=== PATIENT | male | born 1995 | race Caucasian/White ===

== ENCOUNTER 2016-10-21 21:38 | Emergency (ER) | payer OTHER ==
--- NOTE | ~2016-10-21 | CT2 ---
[facility] A Service of [facility] RADIOLOGY TEXT RESULTS PATIENT: MELONIE ASTORGA LOCATION: [facility] : [birth year] UNIT #: [id number] AGE: [address]: Nick Arguelles MD SEX: M ORDER DR: [id number] [facility] [address] [place], [place] [address] [id number] E MR#: [id number] Acc #: [id number] NAME: MELONIE ASTORGA. : 1995 SEX: M STUDY DATE/TIME: 10/22/2016 1:34 UNIT: RUBI ROOM: STUDY DESCRIPTION: CT Abd and Pelv W Cont Attending Physician: Nick Arguelles M.D. Ordering Physician: Nick Arguelles M.D. Primary Care Physician: [facility] MEDICAL IMAGING REPORT This report is preliminary unless electronic signature is present EXAM CT scan of the abdomen and pelvis with contrast INDICTIONS Abdomen pain across the lower abdomen since yesterday. COMPARISON STUDY: 04/18/14 The patient was given 100 mL of Isovue 370 and axial 5 mm images were obtained. Sagittal and coronal reconstructions were generated. FINDINGS There is a calcified granuloma in the right lower lobe. There is minimal basilar atelectasis. The liver, gallbladder, spleen, pancreas, adrenal glands and kidneys are normal in appearance. The aorta is normal in size and there is no adenopathy. There is no evidence of appendicitis. The bowel appear normal. The bladder and prostate gland are normal. The bones are unremarkable. IMPRESSION 1. There is no CT evidence of appendicitis. 2. Otherwise the study is normal. 1. Dictated by... Quinn Brooks M.D. THIS IS AN ELECTRONICALLY VERIFIED REPORT Quinn Brooks M.D. at 10/22/2016 1:42 PM FEL/cmm [facility] A Service of [facility] RADIOLOGY TEXT RESULTS PATIENT: MELONIE ASTORGA LOCATION: [facility] : [birth year] UNIT #: [id number] AGE: [address]: Nick Arguelles MD SEX: M ORDER DR: TD: 10/22/2016 13:26 JOB #: [id number] MEDICAL IMAGING REPORT Page 1 of 1 COPY
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
[~2016-10-21 21:38] MED LIST: HYDROCODON-ACE1 EAC9 PO; IBUPROFEN800 MG PO; NO MEDICATIONS; PHENERGAN25 MG PO
[2016-10-22 01:14] LABS: ALBUMIN SERUM 4.7 g/dL (3.5-5.0); BILIRUBIN,TOTAL 1.1 mg/dL (0.2-2.0); BUN/CREATININE RATIO 12.22; CALCIUM SERUM 8.8 mg/dL (8.4-10.2); CREATININE SERUM 0.9 mg/dL (0.6-1.4); GLOM FILT RATE Estimated 120.8 mL/min (>60); POTASSIUM 3.2 mmol/L (3.5-5.1); PROTEIN TOTAL SERUM 7.2 g/dL (6.0-8.3)
== END 2016-10-22 02:05 | disposition home or self-care (01) ==
LOC: CED 21:38
PROVIDERS: Emergency Medicine
DX: S30.1XXA Contusion of abdominal wall, initial encounter (principal); F17.200 Nicotine dependence, unspecified, uncomplicated; V89.2XXA Person injured in unspecified motor-vehicle accident, traffic, initial encounter; Y92.410 Unspecified street and highway as the place of occurrence of the external cause
CPT/HCPCS: 73030; 73130; 74177; 80053; 82150; 83690; 96361; 96374; 99284; J1885; Q9967